=== PATIENT | female | born 1955 | race Caucasian/White ===

== ENCOUNTER 2020-11-10 17:00 | Emergency (ER) | payer OTHER ==
[~2020-11-10] VITALS: Ht 165.1 cm; Wt 81.6 kg
[2020-11-10 17:22] VITALS: BP_SYST 154
--- NOTE | 2020-11-10 17:22 | NUR ---
Placed in room 5 . Placed on assembler plastic boat, blood pressure machine and pulse oximeter. To gown for exam. Side rails up.
--- NOTE | 2020-11-10 17:25 | NUR ---
Pt bib ambulance with complaint of SOB X3days with mild respiratory distress today from an asthma attack. Pt recieved albuterol and oxygen on ride to the hospital. Pt is AAOX4 speaking full sentences oxygen saturation 97% on RA RR 16 BP elevated 158/79 HR 87 non febrile 98.6. Pt breathing is even and unlabored lung sounds wheezes bilaterally. Attached to monitor resting in [facility].
--- NOTE | 2020-11-10 17:31 | NUR ---
ER at bedside examining patient.
--- NOTE | 2020-11-10 17:35 | NUR ---
Pt complaining of tightness in the chest and trouble breathing 95% RA. Pt requesting oxygen. Pt placed on 2 L NC for comfort. Pt states she feels better.
--- NOTE | 2020-11-10 17:44 | NUR ---
X-ray at bedside.
[2020-11-10] MEDS ORDERED: methylPREDNISolone SOD SUCC/PF 62.5 MG/ML VIAL IVP ONE (17:45)
[2020-11-10] MEDS ORDERED: IPRATROPIUM/ALBUTEROL SULFATE 3 ML AMPUL.NEB (DUONEB) INH ONE (17:45)
[2020-11-10] MEDS ORDERED: NACL 0.9% 1,000 ML IV ONE (17:45)
--- NOTE | 2020-11-10 17:51 | NUR ---
RT at bedside.
[2020-11-10] MEDS ORDERED: PRED20TA PO (18:31)
[2020-11-10 19:05] VITALS: BP_SYST 132
--- NOTE | 2020-11-10 19:06 | NUR ---
Patient given written and verbal discharge instructions and verbalizes understanding. ER MD discussed with patient the results and treatment provided. Patient in stable condition. ID arm band removed. IV catheter removed intact and dressing applied, no active bleeding. Rx of prednisone given. Patient educated on pain management and to follow up with PMD. Pain Scale 0/10. Opportunity for questions provided and answered. Medication side effect fact sheet provided.
== END 2020-11-10 19:06 | disposition home or self-care (01) ==
LOC: SED 17:00
DX: J45.901 Unspecified asthma with (acute) exacerbation (principal)
CPT/HCPCS: 71045; 94640; 96361; 96374; 99283; J2930; J7030